=== PATIENT | female | born 1960 | race Hispanic/Latino ===

== ENCOUNTER 2017-03-29 10:27 | Outpatient (CLI) | payer BC ==
--- NOTE | 2017-03-29 11:03 | Mammography Report ---
Screening mammogram: Routine views compared to prior exams in 2013 and 2016. Mild postoperative scar deformity of the anterior left breast. Bilateral focal asymmetries. Generally fatty replaced breast pattern. No interval change compared to prior exams. No suspicious findings. CAD used. Impression: Stable findings. Recommendation: Annual mammogram followup. BI-RADS CATEGORY: 1 = Negative ACR BI-RADS MAMMOGRAPHIC CODES: 0 = Needs additional imaging evaluation; 1 = Negative; 2 = Benign; 3 = Probably benign; 4 = Suspicious; 5 = Malignant; 6 = Known biopsy-proven malignancy COMMENT: 1. Dense breast tissue, i.e., adenosis, fibrocystic changes, etc., may obscure an underlying neoplasm. 2. Approximately 10% of cancers are not detected with mammography. 3. A negative mammography report should not delay biopsy if a clinically suspicious mass is present.
== END 2017-03-29 10:28 | disposition home or self-care (01) ==
LOC: SPVWC 10:27
DX: Z12.31 Encounter for screening mammogram for malignant neoplasm of breast (principal)
CPT/HCPCS: 77067; G0202

== ENCOUNTER 2018-02-18 08:53 | Outpatient (CLI) | payer BC ==
[2018-02-18 09:25] LABS: Basophils # (Auto) 0.1 K/mm3 (0.0-0.1); Eosinophils # (Auto) 0.1 K/mm3 (0.0-0.4); Eosinophils % (Auto) 1.8 % (0.0-4.3); Hematocrit 42.9 % (30.3-42.9); Hemoglobin 14.5 gm/dl (10.1-14.3); Lymphocytes % (Auto) 27.7 % (13.4-35.0); Mean Corpuscular HGB Conc 34 % (30-34); Mean Corpuscular Hemoglobin 31 pg (28-32); Mean Corpuscular Volume 91 fl (79-97); Monocytes # (Auto) 0.5 K/mm3 (0.0-0.8); Monocytes % (Auto) 7.3 % (0.0-7.3); Platelet Count 188 K/mm3 (140-440); Red Blood Count 4.73 M/mm3 (3.65-5.03); Red Cell Distribution Width 12.9 % (13.2-15.2)
[2018-02-18 09:40] LABS: Bacteria,Urine 1+ /HPF (Negative); Bilirubin,Urine NEG (Negative); Blood,Urine NEG (Negative); Color,Urine Yellow (Yellow); Mucus,Urine FEW /HPF; Protein,Urine <15 mg/dL mg/dL (Negative); Urobilinogen,Urine < 2.0 mg/dL (<2.0)
[2018-02-18 09:57] LABS: Alanine Aminotransferase 22 units/L (7-56); Albumin 4.3 g/dL (3.9-5); BUN/Creatinine Ratio 16; Blood Urea Nitrogen 11 mg/dL (7-17); Calcium 9.2 mg/dL (8.4-10.2); HDL Cholesterol 31 mg/dL (40-59); Hemolysis Index 6; LDL Cholesterol,Direct 74 mg/dL (50-130)
[2018-02-18 18:47] LABS: Creatinine,Urine 73.9 mg/dL (0.1-20.0); Microalbumin/Creatinine Ratio 16.2 ug/mg
== END 2018-02-18 08:54 | disposition home or self-care (01) ==
LOC: LAB 08:53
DX: E11.65 Type 2 diabetes mellitus with hyperglycemia (principal); E55.9 Vitamin D deficiency, unspecified; E78.5 Hyperlipidemia, unspecified; I10 Essential (primary) hypertension; E78.00 Pure hypercholesterolemia, unspecified; K21.9 Gastro-esophageal reflux disease without esophagitis; Z90.49 Acquired absence of other specified parts of digestive tract; Z90.89 Acquired absence of other organs; Z90.710 Acquired absence of both cervix and uterus; Z87.891 Personal history of nicotine dependence
CPT/HCPCS: 36415; 80053; 80061; 81001; 82043; 82306; 83036; 85025

== ENCOUNTER 2018-07-07 09:03 | Outpatient (CLI) | payer BC | END 2018-07-07 09:04 | disposition home or self-care (01) | LOC: LAB 09:03 | PROVIDERS: ATTEND Internal Medicine | DX: E11.65 Type 2 diabetes mellitus with hyperglycemia (principal); I10 Essential (primary) hypertension; E78.5 Hyperlipidemia, unspecified; E78.00 Pure hypercholesterolemia, unspecified | CPT/HCPCS: 36415; 82306; 82607; 84443 ==

== ENCOUNTER 2018-07-10 09:49 | Outpatient (CLI) | payer BC ==
--- NOTE | 2018-07-10 11:19 | Ultrasound Report ---
ULTRASOUND ABDOMEN LIMITED: TECHNIQUE: Transabdominal ultrasound with color Doppler interrogation. HISTORY: right upper quadrant abdominal pain. COMPARISON: none. FINDINGS: LIVER: Normal. BILIARY SYSTEM: Normal. PANCREAS: Normal. RIGHT KIDNEY: Normal. PROXIMAL AORTA: Normal. ASCITES: None. IMPRESSION: Unremarkable exam.
--- NOTE | 2018-07-11 08:17 | Mammography Report ---
BONE DEXA:07/10/18 00:00:00 CLINICAL: Postmenopausal. No comparison. TECHNIQUE: Two site bone DEXA performed on an Hologic scanner. FINDINGS: The average BMD of the lumbar spine L1, L2 and L4 is 0.899g/cm squared with a T-score of -1.2 and a Z-score of +0.2. The L3 vertebra was excluded as an outlier because of metal hardware. The average BMD of the left hip is 0.882g/cm squared with a T-score of -0.5 and a Z-score of +0.5. The left femoral neck BMD is 0.704g/cm squared with a T score of -1.3 and a Z score of 0. IMPRESSION: 1. WHO classification: Osteopenia with increased fracture risk based on both lumbar spine and left femoral neck measurements. 2. The FRAX 10 year fracture probability for a major osteoporotic fracture is 7.4%. 3. The FRAX 10 year fracture probability for hip fracture is 0.5%. Note: FRAX version 3.01. Fracture probability calculated for an untreated patient. Fracture probability may be lower if the patient has received treatment. RECOMMENDATION: Clinical correlation and routine screening. DEFINITIONS: BMD = Bone Mineral Density T-score = BMD related to mean peak bone mass of young adult (mean expressed in Standard Deviation) Z-score = Age matched BMD expressed in SD World Health Organization (WHO) Diagnostic Criteria Normal T-score > -1 SD Osteopenia T-score between -1 and -2.4 SD Osteoporosis T-score -2.5 SD or below NOTE: BMD is not the only risk factor for fracture; also consider factors such as the patient's age, risk of falling, previous osteoporotic fracture, family history of osteoporotic fractures, current smoker, and low body weight. All treatment decisions require clinical judgment and consideration of individual patient factors, including patient preferences, comorbidities, previous drug use and risk factors not captured in the FRAX model (e.g. frailty, falls, vitamin D deficiency, increased bone turnover, interval significant decline in BMD). Fracture probability is calculated for an untreated patient. Fracture probability may be lower if the patient has received treatment. Z-scores are not calculated if >80 years of age.
== END 2018-07-10 09:50 | disposition home or self-care (01) ==
LOC: US 09:49
PROVIDERS: ATTEND Registered Nurse
DX: Z13.820 Encounter for screening for osteoporosis (principal); R10.11 Right upper quadrant pain; M85.88 Other specified disorders of bone density and structure, other site; E11.9 Type 2 diabetes mellitus without complications; E78.5 Hyperlipidemia, unspecified; I10 Essential (primary) hypertension; E78.00 Pure hypercholesterolemia, unspecified; K21.9 Gastro-esophageal reflux disease without esophagitis; Z78.0 Asymptomatic menopausal state; Z90.89 Acquired absence of other organs; Z90.49 Acquired absence of other specified parts of digestive tract; Z90.710 Acquired absence of both cervix and uterus; Z87.891 Personal history of nicotine dependence
CPT/HCPCS: 76705; 77080

== ENCOUNTER 2019-05-13 08:35 | Outpatient (CLI) | payer BC ==
--- NOTE | 2019-05-13 13:56 | Mammography Report ---
DIGITAL SCREENING MAMMOGRAM WITH CAD, 05/13/2019 INDICATION: Routine screening mammography. TECHNIQUE: Digital bilateral 2D mammography was obtained in the craniocaudal and mediolateral obliq ue projections. This examination was interpreted with the benefit of Computer-Aided Detection analysi s. COMPARISON: 04/21/2018 and 03/29/2017 FINDINGS: Breast Density: The breasts are almost entirely fatty. There is no evidence of dominant mass, suspicious calcifications or architectural distortion in eithe r breast. A left lower outer circumscribed nodule is stable compared to previous exams. IMPRESSION: No mammographic evidence of malignancy. Follow up recommendation: Routine yearly BI-RADS Category 2: Benign. A "normal" or negative report should not discourage follow up or biopsy of a clinically significant f inding. A written summary of these findings will be mailed to the patient. The patient will be entered into a mammography reporting system which will generate a reminder letter for the patient's next appointmen t at the appropriate interval. The [employer] recommends yearly mammograms starting at age 40 and continuing as l howard as a woman is in good health. Breast MRI is recommended for women with an approximate 20-25% or greater lifetime risk of breast cancer, including women with a strong family history of breast or ova yuan cancer or who have been treated for Hodgkin's disease. Signer Name: Davon David MD Signed: 05/13/2019 1:52 PM Workstation Name: [id number]
== END 2019-05-13 08:36 | disposition home or self-care (01) ==
LOC: SPVWC 08:35
DX: Z12.31 Encounter for screening mammogram for malignant neoplasm of breast (principal)
CPT/HCPCS: 77067

== ENCOUNTER 2019-05-19 11:30 | Outpatient (CLI) | payer BC ==
[2019-05-19 12:41] LABS: Blood Urea Nitrogen 13 mg/dL (7-17)
--- NOTE | 2019-05-19 14:24 | Cat Scan Report ---
CT ABDOMEN AND PELVIS WITH CONTRAST INDICATION / CLINICAL INFORMATION: M54.5 ACUTE LOW BACK PAIN WITHOUT SCIATICA UNSPECIFIED BACK PAIN. TECHNIQUE: Axial CT images were obtained through the abdomen and pelvis after IV contrast. All CT scans at this location are performed using CT dose reduction for ALARA by means of automated exposure control. COMPARISON: None available. FINDINGS: LOWER CHEST: No significant abnormality. Mild chronic pulmonary changes noted. LIVER: No significant abnormality. GALLBLADDER: No significant abnormality. BILE DUCTS: No significant abnormality. PANCREAS: No significant abnormality. SPLEEN: No significant abnormality. ADRENALS: No significant abnormality. RIGHT KIDNEY and URETER: No significant abnormality. LEFT KIDNEY and URETER: No significant abnormality. STOMACH and SMALL BOWEL: Gastric band in place. No significant abnormality. COLON: No significant abnormality. APPENDIX: No significant abnormality. PERITONEUM: No free fluid. No free air. No fluid collection. LYMPH NODES: No significant adenopathy. AORTA and ARTERIES: No significant abnormality. IVC and VEINS: No significant abnormality. URINARY BLADDER: No significant abnormality. REPRODUCTIVE ORGANS: No significant abnormality. Previous hysterectomy ADDITIONAL FINDINGS: None. SKELETAL SYSTEM: No significant abnormality. IMPRESSION: 1. No significant abnormality. Signer Name: Eros Jim MD Signed: 05/19/2019 2:20 PM Workstation Name: [id number]
== END 2019-05-19 11:31 | disposition home or self-care (01) ==
LOC: CT 11:30
DX: M54.5 Low back pain (principal)
CPT/HCPCS: 36415; 74177; 82565; 84520; Q9967

== ENCOUNTER 2020-03-07 07:26 | Outpatient (CLI) | payer BC ==
--- NOTE | 2020-03-07 14:09 | Treadmill Report ---
STRESS EKG REPORT This is stress EKG report being performed on a 60-year-old female with complaints of chest pain. Baseline EKG showed sinus rhythm at rate of 72 beats per minute, within normal limits. The patient exercised for 7 minutes and 14 seconds on standard Stef protocol. Attained a heart rate of 146 beats per minute, which is 93% of predicted maximal heart rate. The patient did not have any chest pain. Test was stopped because of shortness of breath. At peak heart rate, minimal, less than [address] depressions were noted in the inferolateral leads, which reverted back to normal immediately after stopping the test. Minor nonspecific ST-T changes persisted. Rare PVCs noted during the recording. FINAL IMPRESSION: 1. Fair exercise tolerance. 2. Negative for angina, probably negative for ischemia considering the changes are only minor and nonspecific. 3. Appropriate blood pressure response was noted. 4. Rare PVCs noted during recovery. 5.Appropriate B.P response noted. At this point, EKG changes were felt to be nonischemic. JOB# [id number] RADHA/TYLER JACOB
== END 2020-03-07 07:27 | disposition home or self-care (01) ==
LOC: CARD 07:26
PROVIDERS: ATTEND Internal Medicine Cardiovascular Disease
DX: R07.89 Other chest pain (principal); R94.31 Abnormal electrocardiogram [ECG] [EKG]
CPT/HCPCS: 93017

== ENCOUNTER 2020-03-29 07:52 | Day surgery (SDC) | payer BC ==
[2020-03-29] MEDS ORDERED: SODIUM CHLORIDE 0.9% 1000 ML 1,000 ML ONE (09:26)
--- NOTE | 2020-03-29 09:57 | Anesthesia Day of Surgery ---
Anesthesia Day of Surgery - Day of Surgery Patient Examined: Yes Patient H&P Reviewed: Yes Patient is NPO: Yes
--- NOTE | 2020-03-29 09:59 | Anesthesia Consultation ---
Anesthesia Consult and Med Hx Date of service: 03/29/20 - Airway Anesthetic Teeth Evaluation: Good, Caps, Bridges ROM Head & Neck: Adequate Mental/Hyoid Distance: Adequate Mallampati Class: Class II Intubation Access Assessment: Good - Pre-Operative Health Status ASA Pre-Surgery Classification: ASA2 Proposed Anesthetic Plan: MAC - Pulmonary Hx Smoking: Yes (QUIT 15 YRS AGO) Hx Asthma: No (+2FS) Hx Respiratory Symptoms: No SOB: No COPD: No Hx Pneumonia: No Hx Sleep Apnea: Yes (DIAGNOSISED 2010 CPAP DISCONTINUED BY MD AFTER LAP BAND SURGERY WT LOSS) - Cardiovascular System Hx Hypertension: Yes (DENIES CHEST PAIN) Hx Coronary Artery Disease: No (Pt reports recent NST which was negative) - Central Nervous System Hx Seizures: No - Gastrointestinal Hx Gastroesophageal Reflux Disease: Yes (S/P lap band) - Endocrine Hx End Stage Renal Disease: No Hx Non-Insulin Dependent Diabetes: Yes Hx Thyroid Disease: Yes - Other Systems Hx Alcohol Use: Yes (occasional) Hx Substance Use: No Hx Cancer: No Hx Obesity: Yes
[2020-03-29] MEDS ORDERED: propofoL 200 MG/20 ML VIAL IV ONE ×2 (11:56→12:03)
--- NOTE | 2020-03-29 12:15 | Short Stay Summary ---
Short Stay Documentation Date of service: 03/29/20 Narrative H&P: The patient presents for routine screening colonoscopy. No personal colon polyps. Her father had colon polyps. Last study over 10 years ago. - History Past Medical History: diabetes, hypertension Past Surgical History: cholecystectomy, tonsillectomy Social history: no significant social history, , lives with family - Allergies and Medications Current Medications: Allergies estrogens, conjugated [From Premarin] Allergy (Verified 05/28/13 13:29) Hives tetracycline [Tetracycline] Allergy (Verified 05/28/13 13:29) Shortness of Breath,Hives lidocaine Adverse Reaction (Verified 05/28/13 13:29) TACHYCARDIA thiopental sodium [From Pentothal] Adverse Reaction (Verified 05/28/13 13:29) FEVER ,DIFFICULTY WAKING, JERKING Home Medications Medication Instructions Recorded Confirmed Last Taken Type Gabapentin 300 mg PO HS 05/20/13 03/09/15 03/08/15 History Metformin HCl [Metformin] 1,000 mg PO BID 05/20/13 03/09/15 03/08/15 History Pravastatin [Pravachol] 20 mg PO DAILY 05/20/13 03/09/15 03/08/15 History Sotalol HCl [Sotalol] 80 mg PO DAILY 05/20/13 03/09/15 03/08/15 History oxyCODONE /ACETAMINOPHEN [Percocet 1 tab PO Q6H PRN #60 tablet 05/29/13 03/09/15 03/08/15 Rx 5/325 mg] glipiZIDE [Glucotrol] 10 mg PO BID 03/08/15 03/09/15 03/08/15 History - Physical exam General appearance: no acute distress, well-nourished Integumentary: no rash, no growths, no abnormal pigmentation HEENT: Atraumatic, PERRLA, EOMI, Mucous membr. moist/pink Lungs: Clear to auscultation Breasts: deferred Heart: Regular rate, Normal S1, Normal S2, No murmurs Gastrointestinal: normoactive bowel sounds, no tenderness, no distended, no masses, no guarding, no organomegaly Female Genitourinary: deferred Rectal Exam: normal exam-external/orifice, normal rectal tone, no mass Extremities: no ischemia, pulses intact, pulses symmetrical, No edema, normal temperature, normal color, Full ROM Neurological: Normal speech, Strength at 5/5 X4 ext, Normal tone, Sensation intact, Cranial nerves 3-12 NL - Brief post op/procedure progress note Date of procedure: 03/29/20 Procedure: see dictated report Findings: see dictation Estimated blood loss: none Pathology: none Condition: stable - Disposition Condition at discharge: Good Disposition: DC-01 TO HOME OR SELFCARE - Discharge Diagnoses (1) Family history of colonic polyps Status: Acute Short Stay Discharge Plan Activity: other (No driving for 24 hours) Weight Bearing Status: Full Weight Bearing Diet: diabetic Follow up with: CONCETTA CARTER MD [Primary Care Provider] - 7 Days
--- NOTE | 2020-03-29 12:17 | Operative Report ---
Operative Report Operative Report: Date of procedure: 03/29/2020 Preprocedure diagnosis: Colon cancer screening, family history of colon polyps, father. Last study over 5 years ago. Post procedure diagnosis: Normal study Procedure: Colonoscopy to the cecum Endoscopist: Dr. Rosas Anesthesia: Monitored anesthesia care per anesthesia department Estimated blood loss: 0 Medications: Monitored anesthesia care. See separate report by anesthesia for details. After careful discussion of the nature and purpose of the procedure as well as details of the technique risks benefits and alternatives the patient gave consent. Please see recent history and physical from the office. The patient was placed in the left lateral decubitus position and medicated per anesthesia. A rectal exam was performed sphincter tone was normal there were no masses palpable. The [employer] 570 scope was passed transanally and advanced under continuous direct vision without difficulty to the cecum. The colon was well prepared. The cecum was normal. The ascending colon was normal and on forward and retroflexed views. The transverse colon, descending colon, and sigmoid colon were normal. The rectum was normal on forward and retroflexed views. The procedure was well-tolerated overall and the patient was observed in recovery. Conclusions: Normal colonoscopy to the cecum. Plan: Repeat colonoscopy in 7 to 10 years. Signed electronically: Terrell Rosas M.D.
--- NOTE | 2020-03-29 12:20 | Post Anesthesia Evaluation ---
- Post Anesthesia Evaluation Patient Participated: Yes Airway Patent: Yes Stable Respiratory Function: Yes Nausea/Vomiting: No Temp > 96.8F: Yes Pain Manageable: Yes Adequeate Hydration: Yes Anesthesia Complications: No Block Receding Appropriately: Not Applicable Patient on Ventilator: No
[2020-03-29 12:47] VITALS: BP 129/67
== END 2020-03-29 07:53 | disposition home or self-care (01) ==
LOC: GIO 07:52
PROVIDERS: ATTEND Internal Medicine Gastroenterology
DX: Z12.11 Encounter for screening for malignant neoplasm of colon (principal); E11.9 Type 2 diabetes mellitus without complications; I10 Essential (primary) hypertension; E78.5 Hyperlipidemia, unspecified; K21.9 Gastro-esophageal reflux disease without esophagitis; E66.9 Obesity, unspecified; F32.9 Major depressive disorder, single episode, unspecified; Z83.71 Family history of colonic polyps; Z79.899 Other long term (current) drug therapy; Z88.8 Allergy status to other drugs, medicaments and biological substances; Z79.84 Long term (current) use of oral hypoglycemic drugs; Z98.890 Other specified postprocedural states; Z90.49 Acquired absence of other specified parts of digestive tract; Z90.710 Acquired absence of both cervix and uterus; Z87.440 Personal history of urinary (tract) infections; Z72.89 Other problems related to lifestyle; Z87.891 Personal history of nicotine dependence
CPT/HCPCS: 45378; 82962; J2704; J7030

== ENCOUNTER 2020-07-25 10:58 | Outpatient (CLI) | payer BC ==
--- NOTE | 2020-07-25 12:18 | Mammography Report ---
DIGITAL SCREENING MAMMOGRAM WITH CAD, 07/25/2020 CLINICAL INFORMATION / INDICATION: Routine screening mammography. TECHNIQUE: Digital bilateral 2D mammography was obtained in the craniocaudal and mediolateral obliqu e projections. This examination was interpreted with the benefit of Computer-Aided Detection analysis . COMPARISON: 03/29/2017, 05/13/2019 FINDINGS: Breast Density: The breasts are almost entirely fatty. No dominant mass, suspicious calcifications, or architectural distortion in either breast. Postsurgical scar left breast. Small stable benign nodule is noted in the left breast at 6:00. Small oil cyst is noted in the right subareolar breast. Overall, there has not been a significant interval change. IMPRESSION: No mammographic evidence of malignancy. Follow up recommendation: Routine yearly BI-RADS Category 2: Benign. A "normal" or negative report should not discourage follow up or biopsy of a clinically significant f inding. A written summary of these findings will be mailed to the patient. The patient will be entered into a mammography reporting system which will generate a reminder letter for the patient's next appointmen t at the appropriate interval. The [employer] recommends yearly mammograms starting at age 40 and continuing as l howard as a woman is in good health. Breast MRI is recommended for women with an approximate 20-25% or greater lifetime risk of breast cancer, including women with a strong family history of breast or ova yuan cancer or who have been treated for Hodgkin's disease. Signer Name: Allison Rojas MD Signed: 07/25/2020 12:14 PM Workstation Name: [id number]
== END 2020-07-25 10:59 | disposition home or self-care (01) ==
LOC: SPVWC 10:58
DX: Z12.31 Encounter for screening mammogram for malignant neoplasm of breast (principal)
CPT/HCPCS: 77067